=== PATIENT | female | born 1980 | race Caucasian/White ===

== ENCOUNTER 2016-06-19 12:43 | Emergency (ER) | payer OTHER ==
[2016-06-19 17:23] VITALS: BP 143/95
== END 2016-06-19 17:23 | disposition home or self-care (01) ==
LOC: ED 12:43
DX: H10.13 Acute atopic conjunctivitis, bilateral (principal); N39.0 Urinary tract infection, site not specified; R03.0 Elevated blood-pressure reading, without diagnosis of hypertension; R05 Cough